=== PATIENT | male | born 1955 | race Caucasian/White ===

== ENCOUNTER 2017-08-07 09:00 | Emergency (ER) | payer SELFPAY ==
[~2017-08-07] VITALS: Ht 179.1 cm; Wt 106.5 kg
[2017-08-07 09:07] VITALS: BP 128/72
[2017-08-07] MEDS ORDERED: PROPARACAINE OPHTH 0.5%, 15ML EACHEYE ONE (09:30)
[2017-08-07] MEDS ORDERED: FLUORESCEIN OPHTHALMIC 1 MG STRIP EACHEYE ONE (09:30)
[2017-08-07] MEDS ORDERED: PROPARACAINE OPHTH 0.5%, 15ML ONE (09:31)
[2017-08-07] MEDS ORDERED: FLUORESCEIN OPHTHALMIC 1 MG STRIP ONE (09:31)
== END 2017-08-07 10:52 | disposition home or self-care (01) ==
LOC: ED 09:38
DX: B02.33 Zoster keratitis (principal); Z87.891 Personal history of nicotine dependence
CPT/HCPCS: 99283